=== PATIENT | male | born 1980 | race Two or more races ===

== ENCOUNTER 2019-08-13 08:21 | Day surgery (SDC) | payer OTHER ==
[2019-08-13] MEDS ORDERED: DEXAMETHASONE 4 MG/ML VIAL IVP ONE (08:22)
[2019-08-13] MEDS ORDERED: PROPOFOL 200 MG/20 ML VIAL IVP ONE (08:22)
[2019-08-13] MEDS ORDERED: KETOROLAC 30 MG/ML VIAL IVP ONE (08:22)
[2019-08-13] MEDS ORDERED: MIDAZOLAM 2 MG/2 ML VIAL IVP ONE (08:22)
[2019-08-13] MEDS ORDERED: fentaNYL 250 MCG/5 ML VIAL IVP ONE (08:22)
[2019-08-13] MEDS ORDERED: CEFAZOLIN SODIUM IN 0.9 % NACL 2 GM/100 ML BAG IV ONE (08:51)
[2019-08-13] MEDS ORDERED: LACTATED RINGERS 1,000 ML IV ONE ×2 (09:00→11:58)
--- NOTE | 2019-08-13 09:45 | ANESTHESIA ---
Pre-Anesthesia VS, & Labs - Diagnosis left foot hallux valgus - Procedure left foot bunionectomy Vital Signs: Temp Pulse Resp BP Pulse Ox 36.1 C L 56 L 18 108/75 100 08/13/19 08:44 08/13/19 08:44 08/13/19 08:44 08/13/19 08:44 08/13/19 08:44 Height 6 ft Weight (kg) 80.1 kg - NPO >8 hours Home Medications and Allergies Home Medications: Ambulatory Orders No Known Home Medications 08/12/19 No Known Home Medications 08/12/19 Allergies/Adverse Reactions: Allergies Allergy/AdvReac Type Severity Reaction Status Date / Time No Known Drug Allergies Allergy Verified 08/12/19 14:02 Anes History & Medical History - Anesthetic History Family history of Anesthesia Complications: Denies Family history of Malignant Hyperthermia: Denies - Medical History Cardiovascular: reports: None Pulmonary: reports: None Gastrointestinal: reports: None Urinary: reports: None Neuro: reports: None Musculoskeletal: reports: None Endocrine/Autoimmune: reports: None Blood Disorders: reports: None Skin: reports: None Smoking Status: Never smoker Psychosocial: reports: No issues indicated Exam General: Alert, Oriented x3, Cooperative, No acute distress Dental: WNL Mouth Openin Fingerbreadth Neck Mobility: Normal Mallampati classification: II Thyromental Distance: greater than 6 cm Respiratory: Lungs clear, Normal breath sounds, No respiratory distress, No accessory muscle use Cardiovascular: Regular rate, Normal S1, Normal S2, No murmurs Mental/Cognitive Status: Alert/Oriented X3, Normal for patient Plan Anesthesia Type: General Consent for Procedure(s) Verified and Reviewed: Yes Code Status: Attempt Resuscitation ASA classification: 1-Healthy patient Is this case an emergency?: No
[2019-08-13] MEDS ORDERED: BUPIVACAINE 0.25% PF 10 ML VIAL ONE (09:53)
[2019-08-13] MEDS ORDERED: BUPIVACAINE 0.25% PF 10 ML VIAL SUBQ ONE (10:28)
[2019-08-13] MEDS ORDERED: oxyCODONE 5 MG TABLET PO PRN (12:29)
[2019-08-13] MEDS ORDERED: ONDANSETRON 4 MG/2 ML VIAL IVP PRN (12:29)
--- NOTE | 2019-08-13 12:34 | OPERATIVE REPORT ---
Operative Report - Other Other Information/Narrative: Date of Surgery: 13 August 2019 Pre-Op Diagnosis: Left hallux valgus Procedure: Modified Ro procedure. First metatarsal scarf osteotomy Postop Diagnosis: Same Primary Surgeon: Augusto Rossi Secondary Surgeon: Mundo Workman Complications: None Tourniquet Time: 118 EBL: 5 cc Bunion Postoperative Plan: 0-2 weeks: No weight bearing leave dressing intact 2 week appt: Non weight bearing xrays, sutures out, bunion brace applied 2-4 weeks: No weight bearing, may remove bunion brace for showers, no soaking incision 4 week appt: Reassess, provide forefoot offloading hard soled shoe 4-8 weeks: WBAT in forefoot offloading shoe, continue to use bunion brace 8 week kolby: Weight bearing xrays, may transition to normal shoe Indication For Surgery: 39-year-old male has had years of pain first metatarsal head. It is most prominent when he exercises and limits his activities of daily living. Nonoperative treatment has failed to relieve his symptoms to an acceptable level and he desired surgical management. The risks, benefits, and alternatives were discussed. Risks include pain, bleeding, infection, damage to nearby structures, numbness, recurrence of bunion, hallux varus, lack of symptom relief, implant complications, nonunion, need for further surgery, DVT, PE, stroke, and . Written consent was obtained. Procedure in Detail: The patient was met in the pre-operative hold area on the day of the procedure. The operative extremity was signed and questions were answered. The patient was brought to the operating room and a general anesthetic was administered. Supine position was used and bony prominences were padded. Standard prepping and draping was performed. A time out confirmed patient identification, laterality, procedure, allergies, antibiotics, and images. An Esmarch was used to exsanguinate the limb and the tourniquet was elevated to 250 mmHg. A 3 cm incision was made between the first and second metatarsal heads and blunt dissection was carried down. The neurovascular bundle was protected with a dull retractor. I identified the adductor tendon and the intermetacarpal ligament and sharply resected them from their attachments on the first ray. I took care to leave the flexor hallucis brevis attached to the lateral sesamoid. I incised the capsule between the sesamoid and the metacarpal head. I then pie crusted the lateral capsule between the metacarpal head and the proximal phalanx. A varus force was then applied to the toe and the toe freely moved in the varus. This wound was then packed with gauze A direct medial incision was made over the first metatarsal from the metatarsal phalangeal joint to just short of the tarsometatarsal joint. Blunt dissection was used to identify the dorsal cutaneous nerve and this was protected throughout the case. Full-thickness skin flaps were created. A full-thickness longitudinal capsular incision was made in the first MTP joint and the capsule was dissected off of the metatarsal head ensuring to preserve the plantar capsular attachments with the accompanying blood supply. A periosteal elevator was used to free the periosteum along the medial shaft. The distal dorsal transverse osteotomy was then made perpendicular to the first metatarsal shaft starting centrally and the metatarsal head. The total sawblade was left in place and the plantar proximal transverse osteotomy was made parallel to this ensuring to be within metaphyseal bone. The longitudinal osteotomy was then made parallel to the walking surface of the foot. A second proximal transverse osteotomy was made and a 4 mm chunk of bone was removed. A freer elevator was used to release the periosteum on the lateral surface to allow for the shift. I then shifted the plantar fragment laterally and pulled the dorsal fragment medially. This was then clamped in place and imaging confirmed excellent position. The plantar capsule was pulled on and the sesamoids reduced nicely. Satisfied with this position, countersunk 2.0 millimeter screws were placed proximally and distally confirming excellent purchase. The clamp was then removed and the fixation was stable. The medial shelf of bone was then excised with a sagittal saw. The wound was irrigated copiously. The medial shelf fragment was then flipped and inverted and placed plantarly at the osteotomy site. Images were again taken. I then reassessed the toe and found that there was good spread between the first and second toe and determined that an Jake osteotomy was not necessary. I then excised the excess medial capsule and performed a vest over pants plication and derotational capsular closure using 2-0 fiberwire, burying the knots between layers. This was backed up with multiple 0 Vicryl sutures. The periosteal layer was then closed with 0 Vicryl. The skin was closed with 2-0 Vicryl in the subdermis and 3-0 nylon in the skin. 20 cc of quarter percent Marcaine without epinephrine was placed deep to the incision. A sterile bunion dressing was applied. The patient was awakened and transferred to the recovery room.
[2019-08-13] MEDS: HYDROmorphone 0.5 MG/0.5 ML SYRINGE ONE ×2 (12:52→12:57)
[2019-08-13] MEDS ORDERED: oxyCODONE 5 MG TABLET ONE (13:25)
[2019-08-13 14:17] VITALS: BP 109/63
== END 2019-08-13 08:22 | disposition home or self-care (01) ==
LOC: SDS 08:21
PROVIDERS: ATTEND Orthopaedic Surgery
PROC: 0QSP04Z Reposition Left Metatarsal with Internal Fixation Device, Open Approach (ICD-10-PCS; principal; 2019-08-13 10:00)
DX: M20.12 Hallux valgus (acquired), left foot (principal)
CPT/HCPCS: 28296; A9270; J0690; J1170; J3010; J7120

== ENCOUNTER 2021-06-07 14:26 | Outpatient (CLI) | payer OTHER ==
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
[2021-06-07 15:15] VITALS: BP 116/64
== END 2021-06-07 14:27 | disposition home or self-care (01) ==
LOC: SC 14:26
PROVIDERS: ATTEND Nurse Practitioner Family
DX: R06.83 Snoring (principal); R51.9 Headache, unspecified; G47.8 Other sleep disorders; R41.89 Other symptoms and signs involving cognitive functions and awareness; G47.10 Hypersomnia, unspecified
CPT/HCPCS: 99203; 99212

== ENCOUNTER 2021-07-26 20:37 | Outpatient (CLI) | payer OTHER | END 2021-07-26 20:38 | disposition home or self-care (01) | LOC: SC 20:37 | PROVIDERS: ATTEND Nurse Practitioner Family | DX: R06.83 Snoring (principal); R51.9 Headache, unspecified; G47.8 Other sleep disorders; G47.10 Hypersomnia, unspecified | CPT/HCPCS: 95810 ==

== ENCOUNTER 2021-08-09 08:28 | Outpatient (CLI) | payer OTHER ==
--- NOTE | 2021-08-09 08:46 | SLEEP CARE CONSULTATION ---
Information from patient questionnaire entered by Caron Pak. I have reviewed and concur with the information entered by Caron Pak. This document represents the service I personally performed and the decisions made by , Maddie Medeiros ARNP. History of Present Illness Service Date and Time: 08/09/2021827 Initial [place] Sleepiness Scale score: 16 (in 2020) Current [place] Sleepiness Scale score: 14 Additional HPI information: SRINIVAS GUERRERO returns for follow up and results of the recently performed polysomnography. The patient was informed of the following findings: No significant sleep disordered breathing with an average AHI of 3.7 and starr oxygen saturation of 87%. I explained the pathophysiology behind obstructive sleep apnea. Patient does not have sleep apnea and was advised how weight gain could increase the risk of developing sleep apnea in the future. Patient has light to loud snoring. Snoring can be reduced by weight loss. Weight loss is best achieved with diet consult. Patient instructed to contact PCP for referral. Snoring can also be treated with an oral appliance from a dentist. Advised to check insurance coverage. In addition, an ENT evaluation can be do to see if other treatment is indicated. Patient counseled not drink alcohol less than 4 hours before bedtime as it can increase snoring and apnea. Patient was cautioned about risks of drowsy driving until sleepiness symptoms resolve. Sleep Study - Results Type of Sleep Study: Polysomnography Prior sleep studies: No Polysomnography/Home Sleep Study results: IMPRESSION: The quality of the study is good. The patient had normal sleep e fficiency. The sleep architecture was also normal. Respiratory monitoring showed no significant sleep disordered breathing (AHI = 3.7) or hypoxia (starr oxygen saturation of 87% only 0.1% to the total sleep time was spent with oxygen saturation below 90%). The few respiratory events occurred mainly during supine sleep (supine AHI = 4.2; non-supine = 3.09). Snore was light to loud in intensity. There was no significant periodic leg movement of sleep. Cardiac rhythm was normal sinus rhythm without significant arrhythmia. No abnormal behavior (parasomnia) observed during the night. Allergies and Home Medications Home medication list reviewed: Yes (no changes) Review of Systems Review of systems same as previous: Yes (no changes) Physical Exam Heart Rate: 53 O2 Saturation: 96 Height: 6 ft Weight: 186 lb (with boots/fatigues on) Body Mass Index: 25.2 BMI Classification: Overweight Impression and Plan Snoring but no significant sleep disordered breathing. Patient advised that often weight loss will reduce snoring as well as apnea risk. An oral appliance can also be used for snoring. This would require a dental consultation. Patient cautioned not to use other online appliances as can cause bite issues. [facility] and [facility] local dentist who makes oral appliances is available in office if needed. Patient is advised to check if insurance will cover. An ENT consult can also be helpful to determine if any other treatment is an option. * Attempt to lose weight * Avoid alcohol consumption near bedtime * The patient is cautioned about driving until sleepiness is completely resolv ed. * Return as needed. Counseling Topics: Weight loss health impact Visit Type: In Office Time Spent with Patient (minutes): 10 Provider Statement: I spent 100% of the Face to Face Visit with the patient with greater than 50% spent counseling the patient and coordination of care.
== END 2021-08-09 08:29 | disposition home or self-care (01) ==
LOC: SC 08:28
PROVIDERS: ATTEND Nurse Practitioner Family
DX: R06.83 Snoring (principal); E66.3 Overweight; Z68.25 Body mass index [BMI] 25.0-25.9, adult
CPT/HCPCS: 99212

== ENCOUNTER 2022-04-13 14:18 | Outpatient (CLI) | payer OTHER ==
[2022-04-13 15:10] VITALS: BP 145/90
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
== END 2022-04-13 14:19 | disposition home or self-care (01) ==
LOC: SC 14:18
PROVIDERS: ATTEND Nurse Practitioner Family
DX: R06.83 Snoring (principal); R51.9 Headache, unspecified; G47.8 Other sleep disorders; G47.10 Hypersomnia, unspecified
CPT/HCPCS: 99212; 99213

== ENCOUNTER 2022-05-11 15:29 | Outpatient (CLI) | payer OTHER ==
[2022-05-11 16:01] VITALS: BP 148/92
--- NOTE | 2022-05-11 16:01 | SLEEP CARE CONSULTATION ---
Information from patient questionnaire entered by Sourav Gibson MA. I have reviewed and concur with the information entered by Sourav Gibson MA. This document represents the service I personally performed and the decisions made by , Maddie Medeiros ARNP. History of Present Illness Service Date and Time: 05/11/2022 1529 Initial [employer] Sleepiness Scale score: 16 (in 2020) Current [employer] Sleepiness Scale score: 18 (05/11/2022) Additional HPI information: SRINIVAS GUERRERO returns for follow up and results of the recently performed home sleep study. I explained the pathophysiology behind obstructive sleep apnea. We then spent quite a bit of time discussing different treatment options. For mild obstructive sleep apnea, surgery and oral appliance are alternatives to nasal CPAP therapy but in moderate or severe cases, nasal CPAP is the most effective and reliable treatment. Because apnea is primarily in supine position, then positional management therapy could be effective. Methods discussed such as positioning with pillows to prevent supine sleep. After some discussion, the patient opted to go with the nasal CPAP therapy. Nasal autoCPAP set at 4-15 cmH20 will be ordered with rationale explained. A manual titration study will be ordered if unable to find optimal pressure with office adjustments. I explained how CPAP machine works and what to expect when using the machine. Using CPAP every night in order to get used to it was emphasized. Patient advised to put CPAP mask on before getting into bed so as not to fall asleep without CPAP. To assist acclimation to CPAP use, it could also be used for a short time during day while reading or watching TV. The patient was instructed to call the CPAP supplier to discuss any mechanical problem that may occur. If the mask given is uncomfortable or is difficult to keep on through the night even with adjustment, contact the CPAP supplier as many will replace with another mask style if notified before 30 days. If snoring or perceives is not getting enough air or too much air from the machine, notify this office. Patient counseled not drink alcohol less than 4 hours before bedtime as it can increase snoring and apnea. Patient was cautioned about risks of drowsy driving until sleepiness symptoms resolve. Sleep Study - Results Type of Sleep Study: Home sleep study (08/15 [facility], F/U POLY 04/19/2022 [facility], POS) Prior sleep studies: No Polysomnography/Home Sleep Study results: Physician Impression: The quality of the study is good. The length of the study is adequate (> 240 minutes). Please also see the tabulated and graphic data. 1. Obstructive Sleep Apnea-Hypopnea (ICD-10 G47.33), mild, with an AHI of 6.2/hr and tsarr SaO2 of 91%. During the study, the patient had 25 apneas (25 obstructive, 0 central, 0 mixed) and 21 hypopneas. The longest episode lasted 72.5 seconds. The respiratory events occurred almost exclusively during supine sleep (supine AHI was 7.2 and non-supine, 0.83). Allergies and Home Medications Home medication list reviewed: Yes (no changes) Allergy and home medication list: Allergies No Known Drug Allergies Allergy (Verified 08/12/19 14:02) Review of Systems Review of systems same as previous: Yes (no changes) Physical Exam Vital signs obtained and entered by: Ray GIBSON CMA AANHUNG Blood Pressure: 148/92 (RESP 18, PULSE 59, LEFT) Heart Rate: 68 O2 Saturation: 97 (PAPER MASK) Height: 6 ft Weight: 180 lb Weight change since last visit: MAINTAINING WEIGHT Body Mass Index: 24.4 BMI Classification: Healthy weight Impression and Plan 1. Obstructive Sleep Apnea-Hypopnea Syndrome, mild, with lowest oxygen saturation of 91%. Obviously this is the cause of the patients symptoms of unrefreshed sleep, and excessive daytime sleepiness. The patient will be started on nasal autoCPAP therapy with pressure set at 4-15 cmH2O. Compliance guidelines also reviewed. A copy of compliance guidelines will be given for reference at check out. Because the apnea is more severe supine, I instructed to avoid sleeping supine using pillow positioning until able to start CPAP use. * Nasal auto CPAP therapy, pressure at 4-15 cm H2O. * Avoid alcohol consumption near bedtime. * Maintain a healthy weight * Avoid supine sleep until using CPAP. * The patient is again cautioned about driving until sleepiness completely resolves. * Return one month after CPAP obtained. I will assess response to therapy and compliance at that time. Counseling Topics: Weight control Visit Type: In Office Time Spent with Patient (minutes): 20 Provider Statement: I spent 100% of the Face to Face Visit with the patient with greater than 50% spent counseling the patient and coordination of care.
== END 2022-05-11 15:30 | disposition home or self-care (01) ==
LOC: SC 15:29
PROVIDERS: ATTEND Nurse Practitioner Family
DX: G47.33 Obstructive sleep apnea (adult) (pediatric) (principal)
CPT/HCPCS: 99212; 99213